=== PATIENT | male | born 1985 | race Caucasian/White ===

== ENCOUNTER 2016-11-28 16:15 | Emergency (ER) | payer OTHER ==
[2016-11-28 17:31] VITALS: RESP 24; TEMP 98.6; O2SAT 99
[2016-11-28] MEDS ORDERED: AZITHROMYCIN 250 MG TAB PO ONE (18:57)
[2016-11-28] MEDS ORDERED: AZITHROMYCIN 250 MG TAB ONE (19:01)
[2016-11-28 19:11] VITALS: BP 144/82; PULSE 90
== END 2016-11-28 19:08 | disposition home or self-care (01) | DRG 153 ==
LOC: ED 16:15
DX: J06.9 Acute upper respiratory infection, unspecified (principal)
CPT/HCPCS: 71010; 87430; 99283